=== PATIENT | male | born 1965 | race Caucasian/White ===

== ENCOUNTER 2018-06-07 21:17 | Emergency (ER) | payer MEDICAID ==
[~2018-06-07] VITALS: Ht 177.8 cm; Wt 50.1 kg
--- NOTE | 2018-06-07 21:38 | NUR ---
PT CALLED FROM LOBBY TO TRIAGE. PT NIL X 1. PT POSSIBLY IN RESTROOM.
[2018-06-07 21:46] VITALS: BP 140/94
[2018-06-07] MEDS ORDERED: FLUORESCEIN OPHTHALMIC 1 MG STRIP EACHEYE ONE (22:00)
[2018-06-07] MEDS ORDERED: PROPARACAINE OPHTH 0.5%, 15ML EACHEYE ONE (22:00)
[2018-06-07] MEDS ORDERED: PROPARACAINE OPHTH 0.5%, 15ML ONE (22:05)
--- NOTE | 2018-06-07 22:41 | NUR ---
PT GIVEN DC INSTRUCTIONS AND SCRIPT. PT EDUCATED REAGRDING DC MEDICATION WHICH IS POLYTRIM OPTHALMIC SOLUTION. PT AMB TO DC WITH STEADY GAIT.
== END 2018-06-07 22:42 | disposition home or self-care (01) ==
LOC: ED 22:15
DX: H10.021 Other mucopurulent conjunctivitis, right eye (principal)
CPT/HCPCS: 99283

== ENCOUNTER 2021-01-10 16:53 | Emergency (ER) | payer MEDICAID ==
[~2021-01-10] VITALS: Ht 175.3 cm; Wt 51.5 kg
--- NOTE | 2021-01-10 17:07 | NUR ---
EKG IN TRIAGE
[2021-01-10 17:45] LABS: ALANINE AMINOTRANSFERASE 26 U/L (12-78); ALBUMIN 3.5 g/dL (3.4-5.0); ANION GAP 4 mmol/L (5-15); CALCIUM 8.6 mg/dL (8.5-10.1); CHLORIDE 106 mmol/L (98-107); CREATININE 1.03 mg/dL (0.7-1.3)
[2021-01-10 17:47] LABS: BASOPHILS % (AUTO) 1 % (0-1); EOSINOPHILS % (AUTO) 1 % (1-7); LYMPHOCYTES % (AUTO) 29 % (22-44); MEAN CORPUSCULAR HEMOGLOBIN 35.1 pg (27.5-34.5); MEAN CORPUSCULAR HGB CONC 34.6 g/dL (33.2-36.2); MONOCYTES % (AUTO) 9 % (2-9); NEUTROPHILS % (AUTO) 61 % (42-75); PLATELET COUNT 295 x10^3/uL (130-400); RED BLOOD COUNT 4.23 x10^6/uL (4.38-5.82); RED CELL DISTRIBUTION WIDTH 13.6 % (9.4-14.8)
[2021-01-10 17:49] LABS: ALKALINE PHOSPHATASE 105 U/L (45-117); BILIRUBIN,TOTAL 0.3 mg/dL (0.2-1.0); TOTAL PROTEIN 7.6 g/dL (6.4-8.2); TROPONIN I < 0.015 ng/mL (0.000-0.045)
--- NOTE | 2021-01-10 19:33 | NUR ---
PT HAS CO CP RIGHT CHEST PAIN TODAY, MOVED TO LEFT SIDE. SOB. DIZZY. TRAIAGE NOTE PT AATTACHED TO CARD/SP02/BP MONITORS. VSS. NADN PT TALKING A LOT, A&OX4, BREATHING EVEN AND UNLABORED. PT REPORTS BEING ABLE TO BREATHE A LOT BETTER THAN EARLIER. BED IN LOW, RAILS ENGAGED, CALL LIGHT ON LAP.
[2021-01-10] MEDS ORDERED: LORazepam 1MG TABLET ONE (19:48)
[2021-01-10] MEDS ORDERED: LORazepam 1MG TABLET PO ONE (20:00)
[2021-01-10 20:11] VITALS: BP 105/78
--- NOTE | 2021-01-10 20:58 | NUR ---
Patient/Caregiver given discharge instructions and they have confirmed that they understand the instructions. Patient ambulatory with steady gait. NAD, all questions answered appropriately, denies additional needs at this time. No personal belongings left in room after discharge.
== END 2021-01-10 20:59 | disposition home or self-care (01) ==
LOC: ED 20:36
DX: R07.89 Other chest pain (principal); F41.1 Generalized anxiety disorder; R42 Dizziness and giddiness; Z87.891 Personal history of nicotine dependence; Z88.2 Allergy status to sulfonamides
CPT/HCPCS: 36415; 71045; 80053; 84484; 85025; 93005; 99285